=== PATIENT | male | born 1955 | race Caucasian/White ===

== ENCOUNTER 2019-03-15 08:23 | Emergency (ER) | payer OTHER, BC ==
[2019-03-15 08:26] VITALS: RESP 18; TEMP 97.9; O2SAT 97; BMI 26.6
--- NOTE | 2019-03-15 09:11 | ED PDOC ---
HPI: Headache Time Seen by Provider: 03/15/19 08:34 Chief Complaint (Nursing): Headache Chief Complaint (Provider): Headache History Per: Patient History/Exam Limitations: no limitations Onset/Duration Of Symptoms: Hrs (2) Additional Complaint(s): 63 y/o male presents to the ED complaining of right sided head injury. Patient works at [employer] and states a large table hit the right side of his head around 07:45 today. He admits of having a mild headache. Patient denies any loss of consciousness. PMD: None provided Past Medical History Reviewed: Historical Data Vital Signs: Last Vital Signs Temp 97.9 F 03/15/19 08:25 Pulse 65 03/15/19 08:25 Resp 18 03/15/19 08:25 BP 149/66 03/15/19 08:25 Pulse Ox 97 03/15/19 08:25 Primary Care Provider: Non [facility] Provider, - Medical History PMH: No Chronic Diseases - Family History Family History: States: Unknown Family Hx - Social History Current smoker - smoking cessation education provided: No Alcohol: None - Immunization History Hx Tetanus Toxoid Vaccination: Yes (last year) - Home Medications Home Medications: Ambulatory Orders Medication Instructions Recorded Acetaminophen [Tylenol 325mg tab] 2 tab PO Q4H PRN #20 tab 03/15/19 - Allergies Allergies/Adverse Reactions: Allergies Allergy/AdvReac Type Severity Reaction Status Date / Time No Known Allergies Allergy Verified 07/03/16 13:03 Review of Systems ROS Statement: Except As Marked, All Systems Reviewed And Found Negative Neurological: Positive for: Headache. Negative for: Other (Loss of consciousness.) Physical Exam - Reviewed Nursing Documentation Reviewed: Yes Vital Signs Reviewed: Yes - Physical Exam Appears: Positive for: Well, Non-toxic, No Acute Distress Head Exam: Positive for: ATRAUMATIC, NORMAL INSPECTION (3 cm hematoma right parietal scalp. No laceration.), NORMOCEPHALIC Skin: Positive for: Normal Color, Warm, Dry Eye Exam: Positive for: EOMI, Normal appearance, PERRL ENT: Positive for: Normal ENT Inspection Neck: Positive for: Normal, Painless ROM, Supple Cardiovascular/Chest: Positive for: Regular Rate, Rhythm. Negative for: Murmur Respiratory: Positive for: Normal Breath Sounds. Negative for: Wheezing Gastrointestinal/Abdominal: Positive for: Normal Exam, Soft. Negative for: Tenderness Back: Positive for: Normal Inspection, Vertebral Tenderness (Cervical spine tenderness; C6.). Negative for: L CVA Tenderness, R CVA Tenderness Extremity: Positive for: Normal ROM Neurological/Psych: Positive for: Awake, Alert, Normal Tone, Oriented (x3). Negative for: Motor/Sensory Deficits - ECG O2 Sat by Pulse Oximetry: 97 Medical Decision Making Medical Decision Making: Time:902 Impression:63 y/o male presents with head injury. Plan: -CT Head and cervical spine -Tylenol 650mg PO Accession No. : [id number] Patient Name / ID : KIZZY OVALLE / [id number] Exam Date : 03/15/2019 09:27:37 ( Approved ) Study Comment : Sex / Age : M / 63Y Creator : Yobani Duron MD Dictator : Yobani Duron MD Maintenance And Engineering Manager : Die Trouble Shooter : Yobani Duron MD Approver2 : Report Date : 03/15/2019 10:05:59 My Comment : Date of service: 03/15/2019 PROCEDURE: CT HEAD WITHOUT CONTRAST. HISTORY: Head injury COMPARISON: Noncontrast head CT 07/03/2016. TECHNIQUE: Axial computed tomography images were obtained through the head/brain without intravenous contrast. Radiation dose: Total exam DLP = 828.3 mGy-cm. This CT exam was performed using one or more of the following dose reduction techniques: Automated exposure control, adjustment of the mA and/or kV according to patient size, and/or use of iterative reconstruction technique. FINDINGS: HEMORRHAGE: No intracranial hemorrhage. BRAIN: Stable chronic microangiopathy is appreciated with no interval acute intracranial findings appreciable. No mass effect. Midline brain anatomy is unremarkable as well as posterior fossa contents, including the brainstem. No suspicious extra-axial fluid collection identified. VENTRICLES: Unremarkable. No hydrocephalus. CALVARIUM: No destructive bony lesion or displaced fracture identified including through the skullbase. PARANASAL SINUSES: Unremarkable as visualized. No significant inflammatory changes. MASTOID AIR CELLS: Unremarkable as visualized. No inflammatory changes. OTHER FINDINGS: None. IMPRESSION: No acute intracranial findings appreciable. Stable limited age-related neuro degenerative changes are identified compared to prior CT 07/03/2016. Accession No. : [id number] Patient Name / ID : KIZZY OVALLE / [id number] Exam Date : 03/15/2019 09:30:33 ( Approved ) Study Comment : Sex / Age : M / 63Y Creator : Yobani Duron MD Dictator : Yobani Duron MD Maintenance And Engineering Manager : Die Trouble Shooter : Yobani Duron MD Approver2 : Report Date : 03/15/2019 10:11:42 My Comment : Date of service: 03/15/2019 PROCEDURE: CT Cervical Spine without contrast HISTORY: Head injury COMPARISON: None available. TECHNIQUE: Axial computed tomography images were obtained of the cervical spine without the use of intravenous contrast. Coronal and sagittal reformatted images were created and reviewed. Radiation dose: Total exam DLP = 316.36 mGy-cm. This CT exam was performed using one or more of the following dose reduction techniques: Automated exposure control, adjustment of the mA and/or kV according to patient size, and/or use of iterative reconstruction technique. FINDINGS: VERTEBRAE: Straightened cervical curvature without fracture or spondylolisthesis appreciable nevertheless. Mild multilevel cervical spondylosis identified with C1-2 articulation is degenerated with the odontoid process nevertheless intact. Craniocervical junction appears unremarkable diffuse. Multilevel facet joint degenerative changes appear mild severity but diffuse. DISCS/SPINAL CANAL/NEURAL FORAMINA: No significant stenosis is seen at C2-3. At C3-4, limited disc osteophyte complex is appreciated with borderline central stenosis noted. Mild right and borderline left degenerative neural foraminal stenosis is appreciated due to uncovertebral and facet joint osteophytes. At C4-5, an additional disc osteophyte complex is appreciated slightly irregular including focal right-sided osteophyte causing mild central canal stenosis. [id number] right neural foraminal stenosis identified with none at the left. At C5-6, borderline central canal stenosis results from a disc osteophyte complex with mild right degenerative neural foraminal stenosis. None is seen at the left. C6-7 and C7-T1 appear unremarkable. PARASPINAL SOFT TISSUES: Unremarkable. OTHER FINDINGS: Trace biapical pulmonary fibrosis noted. IMPRESSION: 1. Straightened cervical curvature without fracture or spondylolisthesis evident. 2. Mild multilevel cervical spondylosis is appreciated causing borderline central canal stenosis at C4-5 and C5-6. Variable right-sided limited neural foraminal stenoses are appreciated at multiple levels on a degenerative basis. Scribe Attestation: Documented by Laura Sanchez, acting as a scribe for Emma Fang. Provider Scribe Attestation: All medical record entries made by the Scribe were at my direction and personally dictated by me. I have reviewed the chart and agree that the record accurately reflects my personal performance of the history, physical exam, medical decision making, and the department course for this patient. I have also personally directed, reviewed, and agree with the discharge instructions and disposition. Disposition - Clinical Impression Clinical Impression: Head injury, Scalp hematoma - Disposition Disposition: Routine/Home Disposition Time: 10:27 Condition: IMPROVED Additional Instructions: FOLLOW-UP WITH WORK[facility]'S [facility] WITHIN 2 DAYS FOR REEVALUATION. Prescriptions: Acetaminophen [Tylenol 325mg tab] 2 tab PO Q4H PRN #20 tab PRN Reason: Fever >100.4 F Instructions: Closed Head Injury Forms: [employer] (Russian) Print Language: WALLISIAN
--- NOTE | 2019-03-15 10:09 | CT ---
Date of service: 03/15/2019 PROCEDURE: CT HEAD WITHOUT CONTRAST. HISTORY: Head injury COMPARISON: Noncontrast head CT 07/03/2016. TECHNIQUE: Axial computed tomography images were obtained through the head/brain without intravenous contrast. Radiation dose: Total exam DLP = 828.3 mGy-cm. This CT exam was performed using one or more of the following dose reduction techniques: Automated exposure control, adjustment of the mA and/or kV according to patient size, and/or use of iterative reconstruction technique. FINDINGS: HEMORRHAGE: No intracranial hemorrhage. BRAIN: Stable chronic microangiopathy is appreciated with no interval acute intracranial findings appreciable. No mass effect. Midline brain anatomy is unremarkable as well as posterior fossa contents, including the brainstem. No suspicious extra-axial fluid collection identified. VENTRICLES: Unremarkable. No hydrocephalus. CALVARIUM: No destructive bony lesion or displaced fracture identified including through the skullbase. PARANASAL SINUSES: Unremarkable as visualized. No significant inflammatory changes. MASTOID AIR CELLS: Unremarkable as visualized. No inflammatory changes. OTHER FINDINGS: None. IMPRESSION: No acute intracranial findings appreciable. Stable limited age-related neuro degenerative changes are identified compared to prior CT 07/03/2016.
--- NOTE | 2019-03-15 10:15 | CT ---
Date of service: 03/15/2019 PROCEDURE: CT Cervical Spine without contrast HISTORY: Head injury COMPARISON: None available. TECHNIQUE: Axial computed tomography images were obtained of the cervical spine without the use of intravenous contrast. Coronal and sagittal reformatted images were created and reviewed. Radiation dose: Total exam DLP = 316.36 mGy-cm. This CT exam was performed using one or more of the following dose reduction techniques: Automated exposure control, adjustment of the mA and/or kV according to patient size, and/or use of iterative reconstruction technique. FINDINGS: VERTEBRAE: Straightened cervical curvature without fracture or spondylolisthesis appreciable nevertheless. Mild multilevel cervical spondylosis identified with C1-2 articulation is degenerated with the odontoid process nevertheless intact. Craniocervical junction appears unremarkable diffuse. Multilevel facet joint degenerative changes appear mild severity but diffuse. DISCS/SPINAL CANAL/NEURAL FORAMINA: No significant stenosis is seen at C2-3. At C3-4, limited disc osteophyte complex is appreciated with borderline central stenosis noted. Mild right and borderline left degenerative neural foraminal stenosis is appreciated due to uncovertebral and facet joint osteophytes. At C4-5, an additional disc osteophyte complex is appreciated slightly irregular including focal right-sided osteophyte causing mild central canal stenosis. [id number] right neural foraminal stenosis identified with none at the left. At C5-6, borderline central canal stenosis results from a disc osteophyte complex with mild right degenerative neural foraminal stenosis. None is seen at the left. C6-7 and C7-T1 appear unremarkable. PARASPINAL SOFT TISSUES: Unremarkable. OTHER FINDINGS: Trace biapical pulmonary fibrosis noted. IMPRESSION: 1. Straightened cervical curvature without fracture or spondylolisthesis evident. 2. Mild multilevel cervical spondylosis is appreciated causing borderline central canal stenosis at C4-5 and C5-6. Variable right-sided limited neural foraminal stenoses are appreciated at multiple levels on a degenerative basis.
[2019-03-15 11:01] VITALS: BP 140/70; PULSE 68
== END 2019-03-15 10:50 | disposition home or self-care (01) ==
LOC: H.ER 08:23
DX: S00.03XA Contusion of scalp, initial encounter (principal); W22.8XXA Striking against or struck by other objects, initial encounter; Y99.0 Civilian activity done for income or pay; M48.02 Spinal stenosis, cervical region